=== PATIENT | male | born 1945 ===

== ENCOUNTER 2016-07-19 11:47 | Emergency (ER) | payer MEDICARE, OTHER ==
--- NOTE | 2016-07-19 14:25 | UC ---
Dental HPI - HPI Summary HPI Summary: complaint of dental pain and abscess in his lower jaw that started approx 4 days ago constantly sharp throbbing pain chewing and hot/cold foods increase the pain taking naproxen with minimal relief doesn't have a dentist at this time but has appt denies fever and chills, headache - History of Current Complaint Chief Complaint: UCDentalProblem Stated Complaint: ABSCESS - MOUTH Time Seen by Provider: 07/19/16 14:06 Hx Obtained From: Patient - Allergies/Home Medications Allergies/Adverse Reactions: Allergies Allergy/AdvReac Type Severity Reaction Status Date / Time No Known Allergies Allergy Verified 07/19/16 12:50 Home Medications: Home Medications Naproxen TAB* [Naprosyn 250 mg TAB*] 07/19/16 [History] PMH/Surg Hx/FS Hx/Imm Hx Previously Healthy: Yes - Surgical History Surgical History: None - Family History Known Family History: Positive: Other - breast CA, prostate CA Negative: Cardiac Disease, Hypertension, Diabetes - Social History Occupation: Retired Lives: With Family Alcohol Use: Rare Substance Use Type: None Smoking Status (MU): Never Smoked Tobacco Review of Systems Constitutional: Negative Skin: Negative Eyes: Negative ENT: Dental Pain Respiratory: Negative Cardiovascular: Negative Gastrointestinal: Negative Genitourinary: Negative Motor: Negative Neurovascular: Negative Musculoskeletal: Negative Neurological: Negative Psychological: Negative All Other Systems Reviewed And Are Negative: Yes Physical Exam Triage Information Reviewed: Yes Appearance: Pain Distress, Thin Vital Signs: Initial Vital Signs Temp 97.5 F 07/19/16 12:51 Pulse 61 07/19/16 12:51 Resp 16 07/19/16 12:51 BP 125/70 07/19/16 12:51 Pulse Ox 100 07/19/16 12:51 Vital Signs Reviewed: Yes Eyes: Positive: Conjunctiva Clear ENT: Positive: Pharynx normal, TMs normal Dental: Positive: Gross Decay/Caries @ - throughout, Abscess @ - 25 Neck: Positive: No Lymphadenopathy Respiratory: Positive: Lungs clear, Normal breath sounds, No respiratory distress Cardiovascular: Positive: RRR, No Murmur, Pulses Normal Abdomen Description: Positive: Nontender, Soft Bowel Sounds: Positive: Present Musculoskeletal: Positive: No Edema Neurological: Positive: Alert Psychological Exam: Normal Skin Exam: Normal Dental Complaint Course/Dx - Course Course Of Treatment: exam completed. will start antibiotics and percocet for 2 days then pt can take NSAIDS for pain control followup with dentist - Differential Dx/Diagnosis Differential Diagnosis/Dx: Dental Abscess, Dental Caries Provider Diagnoses: dental abscess Discharge - Discharge Plan Condition: Stable Disposition: HOME Prescriptions: Amoxicillin/Clavulanate TAB* [Augmentin TAB 875*] 875 mg PO BID #20 tab oxyCODONE/Acetamin 5/325 MG* [Percocet 5/325 TAB*] 1 tab PO Q4H PRN #12 tab MDD 6 PRN Reason: Pain (Dental) Patient Education Materials: Dental Abscess (ED) Referrals: [facility] [place] [facility] REFERRAL [Outside] Additional Instructions: Dental HPI - HPI Summary HPI Summary: compalintof dental pain and abscess in his lower jaw thats steretd apptrox 4 days ago constantly sharp throbbing pain chewing and hot/colf foods increase the pain taking naproxen bo minimal relief doesn't thave a dentist at this time denies fever and chills, headache - History of Current Complaint Chief Complaint: UCDentalProblem Stated Complaint: ABSCESS - MOUTH Time Seen by Provider: 07/19/16 14:06 Hx Obtained From: Patient - Allergies/Home Medications Allergies/Adverse Reactions: Allergies Allergy/AdvReac Type Severity Reaction Status Date / Time No Known Allergies Allergy Verified 07/19/16 12:50 Home Medications: Home Medications Naproxen TAB* [Naprosyn 250 mg TAB*] 07/19/16 [History] PMH/Surg Hx/FS Hx/Imm Hx Previously Healthy: Yes - Surgical History Surgical History: None - Family History Known Family History: Positive: Other - breast CA, prostate CA Negative: Cardiac Disease, Hypertension, Diabetes - Social History Occupation: Retired Lives: With Family Alcohol Use: Rare Substance Use Type: None Smoking Status (MU): Never Smoked Tobacco Review of Systems Constitutional: Negative Skin: Negative Eyes: Negative ENT: Dental Pain Respiratory: Negative Cardiovascular: Negative Gastrointestinal: Negative Genitourinary: Negative Motor: Negative Neurovascular: Negative Musculoskeletal: Negative Neurological: Negative Psychological: Negative All Other Systems Reviewed And Are Negative: Yes Physical Exam Triage Information Reviewed: Yes Vital Signs: Initial Vital Signs Temp 97.5 F 07/19/16 12:51 Pulse 61 07/19/16 12:51 Resp 16 07/19/16 12:51 BP 125/70 07/19/16 12:51 Pulse Ox 100 07/19/16 12:51 Discharge - Discharge Plan Condition: Stable Disposition: HOME Patient Education Materials: Dental Abscess (ED) Referrals: [facility] [place] [facility] [Outside] Please start antibiotic as directed Increase fluids and rest Take acetaminophen or ibuprofen for fever or pain Please review your discharge instructions. If your symptoms do not improve please call your primary care provider or return to urgent care.
== END 2016-07-19 14:45 | disposition home or self-care (01) ==
LOC: UCEAST 11:47
DX: K04.7 Periapical abscess without sinus (principal)
CPT/HCPCS: 99212; G0463